=== PATIENT | female | born 1950 | race Caucasian/White ===

== ENCOUNTER 2016-10-19 14:12 | Emergency (ER) | payer OTHER ==
[~2016-10-19] VITALS: Ht 162.6 cm; Wt 102.1 kg
--- NOTE | ~2016-10-19 | EKG ---
[place] [address] [facility] [place] [address] ELECTROCARDIOGRAM REPORT Name: HELIO CHRISTINE 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 : 1950 Requested By: Mansi Martini Order Number: [id number] MD: Lewis Medina Measurements Intervals [place] Rate: 84 P: 29 CT: 164 QRS: -1 QRSD: 103 T: 59 QT: 405 QTc: 479 Interpretive Statements Sinus rhythm Probable left atrial enlargement Abnormal R-wave progression, early transition Nonspecific T abnormalities, anterior leads Baseline wander in lead(s) V6 No previous ECG available for comparison Electronically Signed On 10-20-2016 8:08:02 LABORATORY TECHNICIAN by Lewis Medina [email or web address] <ELECTRONICALLY SIGNED> By: Lewis Medina MD [id number] 16 16 Lewis Mdeina MD /ALINA
[~2016-10-19 14:12] MED LIST: ASPIRIN81 M2 PO; AVAPRO300 MG PO; BAYER CHEWABLE81 MG PO; CHLORTHALIDONE25 MG PO; CLARITIN10 MG PO; CO Q-10100 MG PO; COUMADIN 5 MG TA5 M1 PO; CRESTOR10 MG; DOCUSATE CALCI240 MG; EFFIENT10 MG PO; ELIDEL CREAM 1%30 G1; HYDROCHLOROTH12.5 MG; JANUMET 50-5001 EACH PO; KLOR-CON20 ME1 PO; LASIX 20 MG TAB20 MG PO; LASIX 40 MG TAB40 M1 PO; LASIX 40 MG TAB40 M2 PO; LIPITOR40 MG PO; METFORMIN HCL500 MG PO; MILK OF MA400 MG/5 M PO; NORCO 5-325 TA1 EACH PO; PEPCID40 MG PO; PERCOCET PO; POTASSIUM20 PO; PREDNISONE 20 M20 MG PO; PROAIR HFA8.5 GM INH; PROTOPIC30 GM; ROBAXIN500 MG PO; SENNA; SENNA LAXATIVE1 EACH PO; SINGULAIR 10 MG10 M1 PO; SPIRIVA INH; SYMBICORT160 MCG/4. INH; TOPROL XL25 MG; TOPROL XL25 MG PO; TYLENOL325 MG; TYLENOL325 MG PO; VIIBRYD40 MG; VITAMIN D2000 UNIT PO; VITAMIN D34000 UNIT; WELLBUTRIN XL150 M1; XANAX 0.5 MG0.5 M1; XANAX 0.5 MG0.5 MG PO; ZEBETA10 MG PO; ZETIA10 MG PO
[2016-10-19 14:48] LABS: ABSOLUTE NEUTROPHILS 4.1 thou/uL (1.4-8.2); EOSINOPHILS 1.9 % (0.0-3.0); HEMATOCRIT 39.9 % (37.0-47.0); HEMOGLOBIN 13.2 gm/dL (12.0-15.0); LYMPHOCYTES 24.1 % (24.0-44.0); MANUAL DIFF NO; MCH 29.5 pg (26.0-34.0); MCHC 33.1 % (28.0-37.0); MCV 89.2 fL (80.0-100.0); MONOCYTES 6.6 % (1.0-8.0); PLATELET COUNT 251 thou/uL (150-400); POLYS 66.4 % (36.0-66.0); RBC 4.47 mil/uL (4.20-5.00); RDW 16.4 % (10.5-14.5); WBC 6.2 thou/uL (4.0-11.0)
[2016-10-19] MEDS ORDERED: SINGULAIR 10 MG10 M1 PO (14:57)
[2016-10-19] MEDS ORDERED: CLOBETASOL PROP60 G3 TP (14:58)
[2016-10-19 15:03] LABS: ANION GAP 12 mmol/L (7-16); BUN 12 mg/dL (7-18); CALCIUM 8.5 mg/dL (8.5-10.1); CHLORIDE 101 mmol/L (98-107); CO2 30 mmol/L (21-32); CREATININE 1.1 mg/dL (0.6-1.3); GLUCOSE 258 mg/dL (70-99); POTASSIUM 3.7 mmol/L (3.5-5.1); SODIUM 143 mmol/L (136-145)
[2016-10-19 15:21] LABS: ALBUMIN 3.7 g/dL (3.4-5.0); ALKALINE PHOSPHATASE 90 U/L (46-116); NT-PRO BRAIN NAT PEPTIDE 738 pg/mL (<300); SGOT 20 U/L (15-37); SGPT 23 U/L (30-65); TOTAL BILIRUBIN 0.5 mg/dL (<0.1-1.0); TOTAL PROTEIN 7.6 g/dL (6.4-8.2); TROPONIN-I < 0.04 ng/mL (<0.04-0.07)
== END 2016-10-19 16:56 | disposition home or self-care (01) ==
LOC: ER 14:12
PROVIDERS: Emergency Medicine
DX: R07.89 Other chest pain (principal); I10 Essential (primary) hypertension; I25.10 Atherosclerotic heart disease of native coronary artery without angina pectoris; E11.9 Type 2 diabetes mellitus without complications; F10.99 Alcohol use, unspecified with unspecified alcohol-induced disorder; Z90.710 Acquired absence of both cervix and uterus; Z88.1 Allergy status to other antibiotic agents; Z88.0 Allergy status to penicillin; Z88.2 Allergy status to sulfonamides; Z88.8 Allergy status to other drugs, medicaments and biological substances

== ENCOUNTER 2018-09-29 19:55 | Inpatient (IN) | payer OTHER ==
[~2018-09-29] VITALS: Ht 162.6 cm; Wt 92.1 kg
--- NOTE | ~2018-09-29 | EKG ---
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 : 1950 Requested By: Paty Lawton Order Number: [id number] MD: Jordan Castano Measurements Intervals [place] Rate: 88 P: 43 MA: 167 QRS: -12 QRSD: 100 T: 57 QT: 416 QTc: 504 Interpretive Statements Sinus rhythm Inferior infarct, old Right ventricular conduction delay Prolonged QT interval Baseline wander in lead(s) V5 Compared to ECG 10/19/2016 14:17:43 No significant change was found Electronically Signed On 09-30-2018 8:36:13 ENERGY ADVISOR by Jordan Castano [email or web address] <ELECTRONICALLY SIGNED> By: Jordan Castano MD, [facility] 09/30/18 0836 06 06 Jordan Castano MD, [facility] /EPI
--- NOTE | ~2018-09-29 | HC ---
[facility] [place] [address] CONSULTATION Name: HELIO CHRISTINE Room #: 201-P [facility] IN M.R.#: [id number] Admission: 09/29/18 Attend Phys: Cj Benites Discharge: 10/01/18 Date of : 50 Report #: [id number] THIS REPORT FOR: //name// CC: Cj Woodard CHIEF COMPLAINT: Chest pain. HISTORY OF PRESENT ILLNESS: The patient is a 68-year-old female well known to myself, I had just seen her in the office earlier this week and she was having some sharp chest pain. She had a prolonged episode of central, nonradiating chest discomfort over her central precordium yesterday while at rest. It lasted 5-15 minutes long. She took 1 nitroglycerin, really did not have relief and she came in the Emergency Room and it had mostly resolved. She had a normal sinus rhythm on ECG and no diagnostic ST-T wave abnormalities. Overnight, she has had some sharp twinges of pain that only lasted a few seconds, but the prolonged pain has resolved. She has no nausea or having abdominal bloating. She denies diaphoresis or shortness of breath. She has not had any edema. She has done quite well following her second, aortic valve replacement. PAST MEDICAL HISTORY: She has a history of prior aortic valve surgery x 2. Her initial valve failed shortly after implantation within 2-3 years and had to have a redo aortic valve replacement at [facility] with Dr. Carcamo. At that time, she did require cardiovascular bypasses. She was evaluated in 2016 with a heart catheterization and placement of 2 drug-eluting stents in her circumflex and PTCA only of an ostial OM1. The vein graft to the ramus and OM2 was noted to be patent. Her left anterior descending coronary artery had only [id number]-gc-hxfaxbnb disease. Her right coronary artery had only mild disease. She has normal LV function. She has underlying hypertension and hyperlipidemia. She is also a type 2 diabetic. HOME MEDICATIONS: Include metformin 750 mg p.o. b.i.d., Lasix 40 mg p.o. b.i.d., montelukast, potassium chloride 20 mEq p.o. b.i.d., Lopressor 50 mg p.o. b.i.d., colchicine 0.6 mg b.i.d., Januvia 100 mg daily, glimepiride 2 mg p.o. b.i.d., Plavix 75 mg daily, aspirin 81 mg daily. PAST SURGICAL HISTORY: Prior aortic valve replacement in 2013 and 2015. REVIEW OF SYSTEMS: GASTROINTESTINAL: No nausea, vomiting, hematemesis or melena. GENITOURINARY: No dysuria or hematuria. [address] [address] CONSULTATION Name: HELIO CHRISTINE Room #: 201-P [facility] IN M.R.#: [id number] Admission: 09/29/18 Attend Phys: Cj Benites Discharge: 10/01/18 Date of : 50 Report #: [id number] CARDIOVASCULAR: Positive chest pain. PULMONARY: No shortness of breath, no productive cough. HEENT: No sinus drainage. GASTROINTESTINAL: No hematemesis or melena. GENITOURINARY: No dysuria or hematuria. No frequent urination. PHYSICAL EXAMINATION: VITAL SIGNS: This morning, blood pressure is 121/65, pulse 72, O2 sats 95% on room air. GENERAL: This is a pleasant middle-aged woman. She is alert, oriented, no apparent distress. NECK: Supple. No jugular venous distention. CARDIOVASCULAR: Regular. There is a faint systolic murmur. There is no S3. LUNGS: Clear to auscultation. ABDOMEN: Nontender, nondistended. EXTREMITIES: No peripheral edema. LABORATORY DATA: Electrocardiogram shows a sinus rhythm, subtle T-wave inversion in lead V1 and V2, but no ST segment depression or elevation. Chest x-ray shows no acute abnormality. Troponin I is 0.06 x 2 sets. Her BNP is 371. Hemoglobin is 13.9, INR is 1.0. IMPRESSION AND PLAN: 1. Chest pain. Her symptoms are concerning for angina. I have arranged for an evaluation with a pharmacologic nuclear stress test. She was originally scheduled for one next week. If this is normal, this could be related to an esophageal etiology based on the location. 2. Coronary artery disease. As noted above, she has a history of prior PCI to her circumflex and marginals, and a bypass to a separate marginal. 3. Status post aortic valve replacement. She has a tissue prosthesis, it was a redo procedure and she has done quite well and it was most recently evaluated as an outpatient within the last 12 months or so with satisfactory performance. She does not appear to be in heart failure. 4. Hypertension, stable. 5. Hyperlipidemia. Continue with medical therapy. 6. Diabetes mellitus. Continue with metformin. <ELECTRONICALLY SIGNED> By: Sami Roberts MD, FACC 10/03/18 1446 0907 1009 Shahid Escalera MD, FACC /nt
--- NOTE | ~2018-09-29 | EKG ---
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
[~2018-09-29 19:55] MED LIST changes: +CLOBETASOL PROP60 G3 TP; +ULTRAM 50MG TAB50 MG PO; +VIBRYD PO
[2018-09-29 19:57] VITALS: BP 143/68
[2018-09-29 21:27] LABS: ABSOLUTE NEUTROPHILS 2.6 thou/uL (1.4-8.2); BASOPHILS 1.1 % (0.0-2.0); EOSINOPHILS 4.5 % (0.0-3.0); HEMATOCRIT 40.3 % (37.0-47.0); HEMOGLOBIN 13.9 gm/dL (12.0-15.0); LYMPHOCYTES 36.6 % (24.0-44.0); MCH 30.2 pg (26.0-34.0); MCHC 34.4 g/dL (28.0-37.0); MCV 87.7 fL (80.0-100.0); MONOCYTES 7.6 % (1.0-8.0); PLATELET COUNT 222 thou/uL (150-400); POLYS 50.2 % (36.0-66.0); RDW 14.9 % (10.5-14.5); WBC 5.2 thou/uL (4.0-11.0)
[2018-09-29 21:35] LABS: ANION GAP 6 mmol/L (7-16); BUN 23 mg/dL (7-18); CALCIUM 9.7 mg/dL (8.5-10.1); CHLORIDE 103 mmol/L (98-107); CO2 32 mmol/L (21-32); GLUCOSE 130 mg/dL (74-106); POTASSIUM 3.7 mmol/L (3.5-5.1); SODIUM 141 mmol/L (136-145)
[2018-09-29 21:44] LABS: ALBUMIN 4.2 g/dL (3.4-5.0); SGOT 36 U/L (15-37); SGPT 43 U/L (30-65); TOTAL BILIRUBIN 0.6 mg/dL (<0.1-1.0); TROPONIN-I <0.06 ng/mL (<0.06)
[2018-09-29 22:30] LABS: PROTIME 9.6 Seconds (9.3-11.4)
[2018-09-29 23:32] VITALS: BP 115/57
[2018-09-30] VITALS (38 sets, daily range): BP systolic 105–147; BP diastolic 52–74
[2018-09-30] MEDS ORDERED: LOPRESSOR50 MG PO (00:47)
[2018-09-30] MEDS ORDERED: JANUVIA100 MG PO (00:50)
[2018-09-30] MEDS ORDERED: COLCHICINE0.6 MG PO (00:50)
[2018-09-30] MEDS ORDERED: ULORIC40 MG PO (00:51)
[2018-09-30] MEDS ORDERED: AMARYL2 M1 PO (00:51)
[2018-09-30] MEDS ORDERED: PLAVIX 75 MG TA75 M1 PO (00:52)
[2018-09-30] MEDS ORDERED: CYCLOBENZAPRINE5 MG PO (00:53)
[2018-09-30] MEDS ORDERED: GABAPENTIN 100100 MG PO (00:55)
[2018-09-30 08:27] LABS: CHOLESTEROL 140 mg/dL (<200); HDL CHOLESTEROL 27 mg/dL (>40); LDL CHOLESTEROL 52 mg/dL (<100); TC:HDL 5.2 Ratio (Not establshd); TRIGLYCERIDE 305 mg/dL (<150); TROPONIN-I <0.06 ng/mL (<0.06); VLDL 61 mg/dL (<40)
[2018-10-01 00:49] VITALS: BP 141/69
[2018-10-01 04:41] VITALS: BP 138/67
[2018-10-01 07:10] VITALS: BP 155/79
[2018-10-01 11:05] VITALS: BP 145/81
[2018-10-01 15:40] VITALS: BP 148/78
[2018-10-01 16:43] VITALS: BP 148/78
== END 2018-10-01 17:18 | disposition home or self-care (01) | DRG 311 ==
LOC: ER 19:55 → EROBS 22:10 → ICU 22:10 → 2N 09-30 17:06 → ENTRNSPT 10-01 16:58 → 2N 10-01 17:18
PROVIDERS: Hospitalist; Student in an Organized Health Care Education/Training Program
DX: I24.9 Acute ischemic heart disease, unspecified (principal); I25.110 Atherosclerotic heart disease of native coronary artery with unstable angina pectoris; I10 Essential (primary) hypertension; E78.5 Hyperlipidemia, unspecified; E11.40 Type 2 diabetes mellitus with diabetic neuropathy, unspecified; M10.9 Gout, unspecified; F41.9 Anxiety disorder, unspecified; K21.9 Gastro-esophageal reflux disease without esophagitis; Z60.2 Problems related to living alone; E11.9 Type 2 diabetes mellitus without complications; I48.91 Unspecified atrial fibrillation; Z95.2 Presence of prosthetic heart valve; Z95.1 Presence of aortocoronary bypass graft; Z88.1 Allergy status to other antibiotic agents; Z88.0 Allergy status to penicillin; Z88.2 Allergy status to sulfonamides; Z88.8 Allergy status to other drugs, medicaments and biological substances; Z95.5 Presence of coronary angioplasty implant and graft; Z90.710 Acquired absence of both cervix and uterus; Z79.82 Long term (current) use of aspirin; Z79.899 Other long term (current) drug therapy
CPT/HCPCS: 10078; 10081

== ENCOUNTER → 2018-10-19 | Outpatient (CLI) | payer OTHER ==
[~2018-10-19] MED LIST changes: +AMARYL2 M1 PO; +COLCHICINE0.6 MG PO; +CYCLOBENZAPRINE5 MG PO; +GABAPENTIN 100100 MG PO; +JANUVIA100 MG PO; +LOPRESSOR50 MG PO; +PLAVIX 75 MG TA75 M1 PO; +ULORIC40 MG PO
== END ==
LOC: RAD 09:39
DX: K44.9 Diaphragmatic hernia without obstruction or gangrene (principal)

== ENCOUNTER 2019-06-09 17:04 | Inpatient (IN) | payer OTHER ==
[~2019-06-09] VITALS: Ht 162.6 cm; Wt 94.8 kg
--- NOTE | ~2019-06-09 | HC ---
[facility] [place] [address] CONSULTATION Name: HELIO CHRISTINE Room #: 456-P [facility] IN .R.#: [id number] Admission: 06/09/19 Attend Phys: Aamir Raymond MD Discharge: Date of : 50 Report #: [id number] THIS REPORT FOR: //name// [facility] DATE OF SERVICE: 06/10/2019 REASON FOR CONSULTATION: Right elbow possible infection HISTORY OF PRESENT ILLNESS: The patient is a 69-year-old right-hand dominant female who reported noticing swelling on the posterior aspect of her elbow on Thursday. It then progressed to some pain with erythema that extended down to the volar and ulnar side of her arm. She was seen by her primary care doctor's office on Thursday. Levaquin was started and she was then sent here yesterday. She reports that the pain in this was not as severe as her pain she has experienced with gout in her toe. She noted some labile blood sugars. Upon evaluation in the ER, she reported the edema and redness. The edema has somewhat decreased as well. She was admitted for evaluation of her elbow and IV antibiotics. REVIEW OF SYSTEMS: MUSCULOSKELETAL: See HPI. NEUROLOGIC: Denies numbness or tingling. PAST MEDICAL HISTORY: Significant for coronary artery disease, hypertension, diabetes, gouty and diabetic neuropathy. PAST SURGICAL HISTORY: CABG x 2 with cardiac stent, aortic valve replacement. SOCIAL HISTORY: She is right hand dominant. Denies smoking. Denies use of any ambulatory aids. ALLERGIES: See medical record, AMOXICILLIN, CLAVULANIC ACID, PENICILLIN, ZOLPIDEM, ATORVASTATIN, DULOXETINE, METOCLOPRAMIDE, SERTRALINE, SULFA, SULFAMETHOXAZOLE, TRIMETHOPRIM and VENLAFAXINE. HOME MEDICATIONS: Listed, include metformin, furosemide, montelukast, clobetasol, potassium chloride, metoprolol, colchicine, sitagliptin, glimepiride, febuxostat, clopidogrel, cyclobenzaprine, gabapentin and aspirin. LABORATORY STUDIES: Done on 06/10/2019 show white blood cell count 4.8, hemoglobin 10.9, hematocrit 31.6, platelet count 188. Sedimentation rate is 53, it was 75 on June 09. Chemistry shows low potassium at 3.2, low calcium at 7.8, CRP elevated at 30. The serum uric acid level that I am not locating that was elevated on this visit, done on June 09, uric acid level was 8.3, which was elevated. [address] [address] CONSULTATION Name: HELIO CHRISTINE Room #: 456-P [facility] IN [facility]#: [id number] Admission: 06/09/19 Attend Phys: Aamir Raymond MD Discharge: Date of : 50 Report #: [id number] PHYSICAL EXAMINATION: GENERAL: She is alert and oriented, interacts appropriately. She is well-developed, well-nourished female, in no acute distress. VITAL SIGNS: Most recent vital signs show temperature of 36.9, heart rate 81, respiratory rate 18, blood pressure 139/68, pulse oximetry is 98% on room air. EXTREMITIES: Examination of her right upper extremity, she is grossly neurovascularly intact with gross sensory and motor intact. She has no danyelle erythema. She has edema at the olecranon bursa without a definite fluid collection. There is mild tenderness at the olecranon bursa as well as the lateral epicondyle. There is no pain with elbow motion. She has full elbow, wrist, forearm and hand motion. She will make full fist, full extension. SKIN: Clean, dry and intact. RADIOGRAPHS: Three views of the right elbow show swelling at the posterior olecranon, some mild diffuse arthritic changes within the elbow. No bony destruction is noted. IMPRESSION AND PLAN: Right olecranon bursitis. At this point, it appears to be resolving. I am not appreciating any fluid collection that I could aspirate at this point and her symptoms are significantly improving. She may have also had a cellulitis that is improving. There is no evidence of a septic elbow at this point. I discussed the diagnosis as well as treatment options with her. I would recommend antibiotics and observation. If she and the rest of the medical team do desire for her to be discharged today, I think that would be reasonable as long as she is on antibiotics and the understanding that if her symptoms worsen, she should return to the Emergency Department. Conversely, she could also stay overnight to see if her tenderness continues to resolve and have my partner, Dr. Sami Rose reevaluate her in the morning. Questions were encouraged and answered to the best of my ability. Thank you very much for allowing me to participate in the care of this patient. By: 1234 1318 Dayanara Kimball MD /nt
[2019-06-09 17:05] VITALS: BP 139/64
[2019-06-09 18:13] LABS: ABSOLUTE NEUTROPHILS 4.4 thou/uL (1.4-8.2); BASOPHILS 1.8 % (0.0-2.0); EOSINOPHILS 4.1 % (0.0-3.0); HEMATOCRIT 38.8 % (37.0-47.0); LYMPHOCYTES 19.6 % (24.0-44.0); MCH 30.1 pg (26.0-34.0); MCHC 33.5 g/dL (28.0-37.0); MCV 89.8 fL (80.0-100.0); MONOCYTES 5.7 % (1.0-8.0); PLATELET COUNT 230 thou/uL (150-400); POLYS 68.8 % (36.0-66.0); RBC 4.32 mil/uL (4.20-5.00); RDW 16.4 % (10.5-14.5); WBC 6.4 thou/uL (4.0-11.0)
[2019-06-09 18:22] LABS: CALCIUM 8.8 mg/dL (8.5-10.1); CREATININE 1.1 mg/dL (0.6-1.0); POTASSIUM 3.5 mmol/L (3.5-5.1)
[2019-06-09 18:28] LABS: ALBUMIN 3.5 g/dL (3.4-5.0); TOTAL BILIRUBIN 0.6 mg/dL (<0.1-1.0); TOTAL PROTEIN 7.8 g/dL (6.4-8.2)
[2019-06-09 21:06] VITALS: BP 131/56
[2019-06-09 21:11] VITALS: BP 131/56
--- NOTE | 2019-06-10 04:13 | NUR ---
PT ARRIVED ON THE FLOOR AROUND 2230HRS. PT IS AOX4 AND UP AD EDWIN. PT WAS ORIENTED TO THE ROOM AND THE UNIT. PT WAS ABLE TO SIGN HER OWN CONSENTS AND UNERSTANDS TEACHING. MED REC COMPLETED. HOME MEDS RESTARTED PER OFFICE WORKER. VITAL SIGN STABLE. THE NIGHT PROGRESSED, PT WAS ABLE TO GET COMFORTABLE AND SLEEP PART OF THE SHIFT. PT IS COMPLENT WITH TREATMENT PLAN. NO OTHER S/S OF ACUTE DISTRESS. WILL CONTINUE TO MONITOR.
[2019-06-10 05:56] VITALS: BP 141/69
[2019-06-10 06:00] LABS: BASOPHILS 0.5 % (0.0-2.0); CALCIUM 7.8 mg/dL (8.5-10.1); CREATININE 0.9 mg/dL (0.6-1.0); EOSINOPHILS 4.5 % (0.0-3.0); HEMATOCRIT 31.6 % (37.0-47.0); LYMPHOCYTES 24.9 % (24.0-44.0); MCH 30.9 pg (26.0-34.0); MCHC 34.3 g/dL (28.0-37.0); MCV 90.1 fL (80.0-100.0); MONOCYTES 7.3 % (1.0-8.0); PLATELET COUNT 188 thou/uL (150-400); POLYS 62.8 % (36.0-66.0); POTASSIUM 3.2 mmol/L (3.5-5.1); RBC 3.51 mil/uL (4.20-5.00); RDW 16.3 % (10.5-14.5); WBC 4.8 thou/uL (4.0-11.0)
[2019-06-10 06:10] LABS: HEMOGLOBIN 10.9 gm/dL (12.0-15.0)
[2019-06-10 07:50] VITALS: BP 139/68
[2019-06-10] MEDS ORDERED: GABAPENTIN 100100 MG PO (10:38)
[2019-06-10] MEDS ORDERED: SKIN TREATMENT225 GM TOP (11:28)
[2019-06-10] MEDS ORDERED: CLOTRIMAZOLE 1%15 G1 TOP (11:29)
[2019-06-10 15:00] VITALS: BP 114/66
[2019-06-10 19:16] VITALS: BP 134/58
--- NOTE | 2019-06-10 19:52 | NUR ---
ASSUMED PATENT CARE AT 0715. PATIENT AWAKE AND RESTING QUIETLY IN BED. STATED DID NOT GET MUCH SLEEP LAST NIGHT DUE TO NEUROPATHY PAIN IN HER FEET AND DID NOT GET HER USUAL DOSE OF GABAPENTIN. NOW RECEIVING CORRECT DOSE AND IS FEELING MUCH BETTER. DENIED PAIN TO RIGHT ELBOW UNLESS SHE KNOCKS IT ON SOMETHING. ICE PACK APPLIED. UP INDEPENDENTLY AND TOLERATING WELL. ALL DR.'S CONSULTED ROUNDED. RECEIVED A DOSE OF DAPTOMYCIN WITH NO ADVERSE REACTION NOTED. PLAN IS WHEN DISCHARGES TO CONTINUE ON IV ANTIBIOTIC THROUGH NEXT THURSDAY AND WILL SEE DR. GARCIA IN OUTPATIENT CLINIC. VERY PLEASANT AND COOPERATIVE.
[2019-06-11 00:09] LABS: GLYCOHEMOGLOBIN (HGB A1C) 9.5 % (4.8-5.6)
--- NOTE | 2019-06-11 04:54 | NUR ---
Pt. rested quietly at intervals during the night when checked on during frequent rounds. She c/o pain in her bilateral feet. Tylenol given and scheduled gabapentim given (see emar) with some relief noted. She has been up ad chikis in her room.
[2019-06-11 08:00] VITALS: BP 120/68
--- NOTE | 2019-06-11 10:25 | HC ---
[facility] [place] [address] CONSULTATION Name: HELIO CHRISTINE Room #: 456-P [facility] IN .R.#: [id number] Admission: 06/09/19 Attend Phys: Aamir Raymond MD Discharge: Date of : 50 Report #: [id number] THIS REPORT FOR: //name// CC: Aamir Woodard MD DATE OF SERVICE: 06/10/2019 ENDOCRINE CONSULTATION NOTE CONSULTING PHYSICIAN: Dr. Maxwell Guzmán. REASON FOR CONSULTATION: Uncontrolled type 2 diabetes mellitus. HISTORY OF PRESENT ILLNESS: This is a 69-year-old female patient whose medical background is significant for multiple issues including type 2 diabetes mellitus, CAD, hypertension and neuropathy. The patient was admitted yesterday following a week long issue with right elbow swelling, redness and discomfort. This was first treated by her primary care physician, but the patient continued to experience the same symptoms and it was eventually decided to have her present to the ED where she was admitted for further evaluation and management. On the sides of diabetes mellitus, the patient notes that she has had diabetes for multiple years and notes that her current regimen consists of metformin 750 mg b.i.d., glimepiride 2 mg daily and Januvia 100 mg daily. She notes that she has been under very good control up until a few months ago when she noted that her blood glucose values were rising steadily to where many were above the level of 200 mg/dL. She recalls that her hemoglobin A1c over a month ago was in the 9 range. She is unable to determine why this changing course has occurred, but explains that her diet regimen has not changed significantly during that period. The patient's course of diabetes mellitus has been complicated by severe peripheral neuropathy that is only partially responsive to gabapentin of which she takes 200 mg in the morning and 800 mg in the evenings. She seems to be very bothered by what could be occasionally severe pain in her feet, the patient is not aware of issues pertaining to diabetic retinopathy and is not aware of any element of chronic kidney disease. Significantly, the patient has coronary artery disease and is status post CABG and stent placement. REVIEW OF SYSTEMS: CONSTITUTIONAL: Fatigue, tiredness, but no fever or chills. PULMONARY: Occasional shortness of breath and cough, but no hemoptysis. CARDIAC: Negative for chest pain, but noted for lower extremity edema. No palpitations. GASTROINTESTINAL: Negative for abdominal pain, nausea, vomiting or changes in [facility] [address] [place] [address] CONSULTATION Name: HELIO CHRISTINE Room #: 456-P [facility] IN [facility].#: [id number] Admission: 06/09/19 Attend Phys: Aamir Raymond MD Discharge: Date of : 50 Report #: [id number] bowel frequency. NEUROLOGY: Noted for chronic severe issues with peripheral diabetic neuropathy affecting both her feet in the form of pain and burning. SKIN: Negative for rash or ulceration, but noted for the redness and swelling over her right elbow. HEENT: Negative for sinus congestion, nasal drainage or earache. PSYCHIATRIC: Negative for hallucinations, delusions. HEMATOLOGY: Negative for bruising or ecchymosis. Otherwise, review of systems noncontributory other than what is mentioned in HPI. PAST MEDICAL HISTORY: 1. Type 2 diabetes mellitus. 2. Obesity. 3. Hypertension. 4. Peripheral diabetic neuropathy. 5. [place] cyst of the knee. 6. Hyperlipidemia. 7. Gout. 8. Coronary artery disease, status post CABG in 01/2014 and stent placement in 2015. 9. Aortic valve replacement. 10. Anxiety. PAST SURGICAL HISTORY: 1. CABG. 2. Hysterectomy. OUTPATIENT MEDICATIONS: Metformin 750 mg b.i.d., Januvia 100 mg daily, glimepiride 2 mg daily, furosemide 40 mg b.i.d., Singulair 10 mg daily, metoprolol 50 mg b.i.d., colchicine 0.6 mg b.i.d., febuxostat 40 mg daily, Plavix 75 mg daily, Flexeril 5 mg p.r.n., gabapentin 200 mg in a.m., 800 mg in p.m., aspirin 81 mg daily. ALLERGIES: AMOXICILLIN, CLAVULANIC ACID, PENICILLIN, AMBIEN, ATORVASTATIN, DULOXETINE, METOCLOPRAMIDE, ZOLOFT, SULFA, VENLAFAXINE. SOCIAL HISTORY: The patient has 2 grown children. She lives by herself. She denies use of tobacco, alcohol or illicit drugs. PHYSICAL EXAMINATION: GENERAL: This is a pleasant middle-aged female patient who is not in apparent pain or distress. VITAL SIGNS: Blood pressure is 139/68 mmHg, heart rate is 81 beats per minute, respirations 18 per minute, temperature is 36.9 degrees. HEENT: Anicteric sclerae. Intact extraocular motions. NECK: Supple, without JVD, carotid bruits or lymphadenopathy. I do not [facility] [address] [place] [address] CONSULTATION Name: HELIO CHRISTINE Room #: 456-P ADM IN M.R.#: [id number] Admission: 06/09/19 Attend Phys: Aamir Raymond MD Discharge: Date of : 50 Report #: [id number] appreciate thyromegaly. CHEST: Noted for moderate air entry bilaterally with scattered rales, but no wheezes or rhonchi. HEART: Regular rate and rhythm without murmurs or gallops. ABDOMEN: Soft and lax without tenderness or organomegaly. She has active bowel sounds. LOWER EXTREMITIES: Noted for trace ankle edema bilaterally with palpable pedal pulses and severely diminished sensation to light touch. MUSCULOSKELETAL: Right elbow redness and swelling. NEUROLOGIC: Awake, alert and oriented to time, place and person. The remainder of her examination is nonfocal other than for peripheral sensory deficit. PSYCHIATRIC: Normal mood and affect, interactive. LABORATORY RESULTS: Her blood glucose this morning was 208 mg/dL, white blood count 4.8, hemoglobin 10.9, hematocrit 31.6, platelets 188. ESR 53. Sodium 140, potassium 3.2, chloride 103, carbon dioxide 27, anion gap 10, BUN 14, creatinine 0.9, GFR 62. Glucose 266. Lactic acid 4.0. GFR was as low as 49 yesterday. Uric acid 8.3, calcium 8.8, total bilirubin 0.6, AST 66, ALT 47, calcium 7.8. Total cholesterol 140, triglycerides 305, HDL 27, LDL 52. Hemoglobin A1c in January 2014 was 6.1. TSH on 09/30/2018 was 5.218. ASSESSMENT AND PLAN: 1. Type 2 diabetes mellitus. As noted above, the patient notes that she has had what has been historically well controlled diabetes mellitus until the past few months when she has noticed a distinct increase in her blood glucose values. I will update her hemoglobin A1c in an attempt to better understand her current level of control. Moreover, the patient's kidney function has fluctuated between stage 2 and stage 3A during her 24 hours of hospital stay, which pushes in the direction of renally adjusted doses of her medicines, namely dropping her Glucophage to 750 mg once a day and Januvia to 50 mg once a day. Collectively, I am doubtful that the current regimen, especially after the renal dose adjustments would be sufficient to control her blood glucose values. That said, I will initiate therapy with long-acting insulin at a dose of Lantus insulin 12 units daily to be started now in addition to coverage with Humalog supplemental scale low intensity, Glucophage will be held for the duration of her hospital stay and I will switch her to Tradjenta 5 mg daily, which would be advantageous from the renal function standpoint. Moreover, with Lantus being started, the patient might be able to forego sulfonylurea therapy, especially with her stated sulfa allergy. I believe that the patient will need to maintain therapy with long-acting insulin after discharge and long-term as an outpatient. Blood glucose monitoring will commence a.c. and at bedtime to help further adjust her regimen as needed. 2. Hypothyroidism. The patient had a TSH value that is indicative of subclinical hypothyroidism back in late 2018. I will update her profile with TSH, free T4 and TPO antibodies and proceed as needed afterwards. 3. Hypertension. The patient's level of blood pressure control is adequate. [address] [address] CONSULTATION Name: HELIO CHRISTINE Room #: 456-P [facility] IN ..#: [id number] Admission: 06/09/19 Attend Phys: Aamir Raymond MD Discharge: Date of : 50 Report #: [id number] She is to continue the current regimen. 4. Chronic kidney disease. As noted above, the patient has had GFR values over the past 24 hours that are indicative of stage 3 chronic kidney disease. This will be monitored and accounted for future therapeutic plans. I certainly appreciate this consultation by Dr. Guzmán. It is certainly a pleasure to participate in the care of Dr. Sharma's patient. <ELECTRONICALLY SIGNED> By: Cayla Machado MD 06/11/19 1025 1424 2353 Cayla Machado MD /nt
[2019-06-11 15:00] VITALS: BP 134/61
--- NOTE | 2019-06-11 16:45 | NUR ---
PT A&OX4, VSS, DENIES PAIN. PATIENT IN RECLINER MOST OF DAY, FAMILY IN TO VISIT. RIGHT ELBOW EDEMA, SKIN PINK. PER PATIENT HER SWELLING IN ELBOW HAS DECREASED. WILL CONTINUE TO MONITOR
[2019-06-11 19:20] VITALS: BP 146/72
--- NOTE | 2019-06-12 04:04 | NUR ---
Pt. rested quietly at intervals during the night when checked on during frequent rounds. She c/o bilateral feet pain and scheduled neurontin given (see emar) with some relief noted. Some swelling to the right elbow area and pt. reports improvement. Up ad chikis in her room.
[2019-06-12 05:16] LABS: HEMATOCRIT 34.2 % (37.0-47.0); HEMOGLOBIN 11.7 gm/dL (12.0-15.0); MCH 30.5 pg (26.0-34.0); MCHC 34.1 g/dL (28.0-37.0); MCV 89.6 fL (80.0-100.0); RBC 3.82 mil/uL (4.20-5.00); RDW 15.9 % (10.5-14.5); WBC 4.3 thou/uL (4.0-11.0)
[2019-06-12 05:32] LABS: CALCIUM 8.2 mg/dL (8.5-10.1); CREATININE 0.9 mg/dL (0.6-1.0); POTASSIUM 3.5 mmol/L (3.5-5.1)
[2019-06-12 10:08] VITALS: BP 114/56
[2019-06-12] MEDS ORDERED: JANUVIA50 MG PO (12:36)
[2019-06-12] MEDS ORDERED: LANTUS100 UNIT/M SUBQ (15:18)
[2019-06-12] MEDS ORDERED: NOVOLOG100 UNIT/1 SUBQ (15:19)
[2019-06-12] MEDS ORDERED: TRADJENTA5 MG PO (15:22)
[2019-06-12] MEDS ORDERED: ZYVOX600 MG PO (15:22)
[2019-06-12 16:42] VITALS: BP 114/56
[2019-06-12 18:09] VITALS: BP 114/56
--- NOTE | 2019-06-12 19:33 | NUR ---
PT DISCHARGED HOME, A&OX4, VSS, DENIES PAIN/CHEST PAIN/SOA. PATIENT VERBALIZED UNDERSTANDING OF DISCHARGE PAPERWORK AND PRESCRIPTIONS. PATIENT STATED THE ONLY [facility] OPEN IS FAR FROM HER HOUSE AND SHE WANTS TO FILL THEM ON THURSDAY, DUE TO Thursday06/13/19 BEING A HOLIDAY. NO SIGNS OF DISTRESS, ALL BELONGINGS WITH PATIENT, IV REMOVED.
--- NOTE | 2019-06-13 12:23 | HC ---
[facility] [place] [address] CONSULTATION Name: HELIO CHRISTINE Room #: 456-P [facility] IN M.R.#: [id number] Admission: 06/09/19 Attend Phys: Aamir Ramyond MD Discharge: 06/12/19 Date of : 50 Report #: [id number] THIS REPORT FOR: //name// CC: Aamir SharmaAimee DATE OF SERVICE: 06/10/2019 INFECTIOUS DISEASE CONSULTATION REASON FOR CONSULTATION: I was asked to evaluate concerning right olecranon bursitis. HISTORY OF PRESENT ILLNESS: The patient is a 69 year old with diabetes, coronary artery disease, coronary bypass grafting and aortic valve replacement and gouty arthritis with peripheral neuropathy. She noticed increased pain and swelling in her right elbow with onset about 5 days ago. No specific trauma. Does not feel similar to her gout, which has involved her feet. Denied any fever, chills or sweats. Pain and swelling persisted with increased erythema that started tracking down her forearm. She, therefore, was hospitalized, placed on vancomycin. Over the last 24 hours, she has shown signs of improvement. There is less swelling, pain and redness. Blood sugar control continues to be an issue with her. She is obese. REVIEW OF SYSTEMS: She has peripheral neuropathy, which is a painful issue to both feet. She is on gabapentin to help control this discomfort. She has had no other cardiopulmonary, GI or complaints. 10-point review was negative other than what is described above. ALLERGIES: PENICILLIN. She does think that she has tolerated cephalosporins in the past. AMBIEN, LIPITOR, CYMBALTA, REGLAN, ZOLOFT, EFFEXOR, SULFA. MEDICATIONS: Include vancomycin. She is also started on colchicine. PAST MEDICAL HISTORY: Hypertension, coronary artery disease, coronary bypass grafting, aortic valve replacement with a bioprosthetic valve, diabetes, hysterectomy, atrial fibrillation, anxiety, diabetic neuropathy and gouty arthritis. SOCIAL HISTORY: Nonsmoker, no significant alcohol intake. FAMILY HISTORY: Noncontributory. PHYSICAL EXAMINATION: VITAL SIGNS: Afebrile and hemodynamically stable. She is sitting in her chair, in no acute distress. She was moderately obese. [facility] [address] [place] [address] CONSULTATION Name: HELIO CHRISTINE Room #: 456-P [facility] IN [facility].#: [id number] Admission: 06/09/19 Attend Phys: Aamir Raymond MD Discharge: 06/12/19 Date of : 50 Report #: [id number] SKIN: With mild erythema involving the olecranon region. There was thickening of the skin over the bursa with persistent tenderness. No axillary adenopathy. Sensation in her upper extremities was normal. Pulses in the wrist were normal. EYES: Without scleral icterus. MOUTH: Without mucositis. NECK: Supple. LUNGS: Clear. HEART: Regular without murmur, gallop or rub. She had crisp valve sounds. ABDOMEN: Soft, nontender, no hepatosplenomegaly or mass appreciated. EXTREMITIES: Lower extremities without clubbing, cyanosis or edema. NEUROLOGIC: Cranial nerves intact. Sensation in the lower extremities distally was diminished. PSYCHIATRIC: Mood was normal. BACK: Nontender. No CVA tenderness. LABORATORY STUDIES: ESR 53. Blood cultures negative. Creatinine 0.9. Hemoglobin 10.9, white count 4.8. Differential unremarkable. X-ray of the elbow, soft tissue swelling consistent with olecranon bursitis, degenerative arthritis. IMPRESSION: 1. 69-year-old diabetic with aortic valve replacement, has right olecranon bursitis. This most likely is secondary to infection considering she has no history of tophi. Still cannot yet rule out gout involvement in the bursa. Feel it is most reasonable to continue antibiotic therapy. 2. Diabetes. 3. Hypertension. 4. Prosthetic aortic valve. 5. Anxiety. 6. Peripheral neuropathy. RECOMMENDATIONS: We will continue IV antibiotic therapy, due to her drug allergies and the possibility for MRSA we will go with daptomycin in the outpatient clinic. I can do this through the weekend and reevaluate the first of next week. If improved, then we will switch to oral therapy. She will need to control blood glucose levels and we discussed this. She will continue with offloading. Control edema. We will make arrangements for outpatient care. <ELECTRONICALLY SIGNED> By: Ras Wright MD 06/13/19 1223 [id number] Ras Wright MD /nt
== END 2019-06-12 19:28 | disposition home or self-care (01) | DRG 558 ==
LOC: ER 17:04 → EROBS 19:50 → 4W 19:50
PROVIDERS: Emergency Medicine; Hospitalist; Internal Medicine; Nurse Practitioner; ADMIT Hospitalist
DX: M70.21 Olecranon bursitis, right elbow (principal); L03.113 Cellulitis of right upper limb; E11.22 Type 2 diabetes mellitus with diabetic chronic kidney disease; N18.3 Chronic kidney disease, stage 3 (moderate); E11.42 Type 2 diabetes mellitus with diabetic polyneuropathy; E78.5 Hyperlipidemia, unspecified; E66.9 Obesity, unspecified; E03.9 Hypothyroidism, unspecified; I12.9 Hypertensive chronic kidney disease with stage 1 through stage 4 chronic kidney disease, or unspecified chronic kidney disease; M10.9 Gout, unspecified; I48.0 Paroxysmal atrial fibrillation; F41.9 Anxiety disorder, unspecified; Z68.35 Body mass index [BMI] 35.0-35.9, adult; Z79.899 Other long term (current) drug therapy; Z88.2 Allergy status to sulfonamides; Z88.1 Allergy status to other antibiotic agents; Z88.8 Allergy status to other drugs, medicaments and biological substances; Z88.0 Allergy status to penicillin; Z95.1 Presence of aortocoronary bypass graft; Z90.710 Acquired absence of both cervix and uterus; Z95.4 Presence of other heart-valve replacement; Z79.84 Long term (current) use of oral hypoglycemic drugs; Z79.82 Long term (current) use of aspirin
CPT/HCPCS: 10040

== ENCOUNTER 2021-08-06 18:10 | Inpatient (IN) | payer OTHER ==
[~2021-08-06] VITALS: Ht 162.6 cm; Wt 97.8 kg
[~2021-08-06 18:10] MED LIST changes: +CLOTRIMAZOLE 1%15 G1 TOP; +JANUVIA50 MG PO; +LANTUS100 UNIT/M SUBQ; +NOVOLOG100 UNIT/1 SUBQ; +SKIN TREATMENT225 GM TOP; +TRADJENTA5 MG PO; +ZYVOX600 MG PO
[2021-08-06 18:11] VITALS: BP 153/72
[2021-08-06 18:36] LABS: ABSOLUTE NEUTROPHILS 6.4 thou/uL (1.4-8.2); BASOPHILS 0.5 % (0.0-2.0); EOSINOPHILS 3.1 % (0.0-3.0); HEMATOCRIT 37.2 % (37.0-47.0); HEMOGLOBIN 12.5 gm/dL (12.0-15.0); LYMPHOCYTES 13.1 % (24.0-44.0); MCH 29.5 pg (26.0-34.0); MCHC 33.5 g/dL (28.0-37.0); MCV 88.1 fL (80.0-100.0); MONOCYTES 5.4 % (1.0-8.0); PLATELET COUNT 263 thou/uL (150-400); POLYS 77.9 % (36.0-66.0); RBC 4.23 mil/uL (4.20-5.00); RDW 16.3 % (10.5-14.5); WBC 8.2 thou/uL (4.0-11.0)
[2021-08-06 18:48] LABS: CALCIUM 9.1 mg/dL (8.5-10.1); POTASSIUM 4.1 mmol/L (3.5-5.1)
[2021-08-06] MEDS ORDERED: BETAMETHASONE D15 G4 TOP (21:21)
[2021-08-06] MEDS ORDERED: PREGABALIN75 MG PO (21:21)
[2021-08-06] MEDS ORDERED: PLAVIX 75 MG TA75 MG PO (21:22)
[2021-08-06] MEDS ORDERED: EZETIMIBE10 MG PO (21:23)
[2021-08-06] MEDS ORDERED: LOPRESSOR50 MG PO (21:23)
[2021-08-06] MEDS ORDERED: FUROSEMIDE 40 M40 M1 PO (21:26)
[2021-08-06] MEDS ORDERED: ASA81BEC PO (21:27)
[2021-08-06] MEDS ORDERED: AMARYL4 MG PO (21:28)
[2021-08-06] MEDS ORDERED: JARDIANCE10 MG PO (21:28)
[2021-08-06] MEDS ORDERED: LANTUS SUBQ (21:29)
[2021-08-06] MEDS ORDERED: NOVOLOG100 UNIT/1 SUBQ (21:30)
[2021-08-06] MEDS ORDERED: METFORMIN HCL500 M3 PO (21:31)
[2021-08-06 23:25] LABS: CHOLESTEROL 158 mg/dL (<200); HDL CHOLESTEROL 30 mg/dL (>40); LDL CHOLESTEROL 80 mg/dL (<100); TC:HDL 5.3 Ratio (Not establshd); TRIGLYCERIDE 244 mg/dL (<150); VLDL 49 mg/dL (<40)
[2021-08-06 23:26] LABS: SERUM ASSESSMENT Slight Lipemia
[2021-08-07 01:26] VITALS: BP 114/63
[2021-08-07 02:30] VITALS: BP 117/53
[2021-08-07 03:03] LABS: HEMATOCRIT 37.4 % (37.0-47.0); HEMOGLOBIN 12.3 gm/dL (12.0-15.0); MCH 29.4 pg (26.0-34.0); MCHC 32.8 g/dL (28.0-37.0); MCV 89.5 fL (80.0-100.0); RBC 4.19 mil/uL (4.20-5.00); RDW 16.3 % (10.5-14.5); WBC 7.2 thou/uL (4.0-11.0)
[2021-08-07 03:57] LABS: CALCIUM 8.8 mg/dL (8.5-10.1); MAGNESIUM 1.7 mg/dL (1.8-2.4); POTASSIUM 4.3 mmol/L (3.5-5.1)
[2021-08-07 04:40] VITALS: BP 111/56
--- NOTE | 2021-08-07 05:21 | NUR ---
PT ARRIVED IN WHEEL CHAIR FROM ER. UP AD EDWIN. CAREPLAN IN PLACE, INTERVENTIONS SET, AND MED REC COMPLETED IN ER. PT IS NPO FOR POSSIBLE PROCEDURE. CONSULT TO CARDIO WILL BE PLACED THIS AM. PT WAS SCHEDULED FOR OUTPATIENT SURGERY TODAY FOR A TRIGGER FINGER.
[2021-08-07 07:12] VITALS: BP 118/67
--- NOTE | 2021-08-07 08:41 | NUR ---
CALLED [facility], SPOKE TO DEYANIRA. HE STATED PT STRESS TEST IS A 2 PART AND PT CAN EAT AND TAKE HER MEDS TODAY. ORDER PLACE BACK IN FOR A DIET FOR THE PT.
--- NOTE | 2021-08-07 11:20 | 2DMMODE ---
[facility] [place] [address] 2 D/M-MODE ECHOCARDIOGRAM Name: HELIO CHRISTINE Room #: 360-P ADM IN ..#: [id number] Admission: 08/06/21 Attend Phys: Maxwell Guzmán MD Discharge: Date of : 50 Report #: [id number] THIS REPORT FOR: cc: Kellie Woodard MD, Paula V. MD Park, Jin S. MD ~ APPROVED REPORT Study performed: 08/07/2021 10:10:08 EXAM: Comprehensive 2D, Doppler, and color-flow Echocardiogram Patient Location: Bedside Room #: 360 Status: routine BSA: 2.00 HR: 66 bpm BP: 118/67 mmHg Rhythm: NSR Other Information Study Quality: Adequate Technically limited study due to obesity. Indications Chest pain. Hx: CABG, PCI, aortic valve replacement X 2. 2D Dimensions IVSd: 11.70 (7-11mm) LVDd: 47.43 mm PWd: 10.98 (7-11mm) LVDs: 33.55 (25-40mm) Left Atrium: 46.09 (27-40mm) Aortic Root: 28.78 mm Volumes Left Atrial Volume (Systole) Single Plane 4CH: 77.63 mL Single Plane 2CH: 56.95 mL LA ESV Index: 36.00 mL/m2 Aortic Valve AoV Peak Khadar.: 3.31 m/s AO Peak Gr.: 43.84 mmHg LVOT Max P.86 mmHg AO Mean Gr.: 27.12 mmHg [facility] [address] [place] [address] 2 D/M-MODE ECHOCARDIOGRAM Name: HELIO CHRISTINE Room #: 360-P [facility] IN .R.#: [id number] Admission: 08/06/21 Attend Phys: Maxwell Guzmán MD Discharge: Date of : 50 Report #: [id number] AO V2 Mean: 2.47 m/s LVOT Max V: 1.31 m/s AO V2 VTI: 80.37 cm Mitral Valve E/A Ratio: 0.9 MV Decel. Time: 277.22 ms MV E Max Khadar.: 1.33 m/s MV A Khadar.: 1.50 m/s MV PHT: 80.39 ms IVRT: 65.74 ms Pulmonary Valve PV Peak Khadar.: 1.26 m/s PV Peak Gr.: 6.36 mmHg Pulmonary Vein P Vein S: 0.68 m/s P Vein A: 0.24 m/s P Vein D: 0.48 m/s P Vein A Dur.: 110.7 msec P Vein S/D Ratio: 1.42 Tricuspid Valve TR Peak Khadar.: 2.67 m/s RAP Estimate: 5.00 mmHg TR Peak Gr.: 28.48 mmHg PA Pressure: 33.00 mmHg Left Ventricle The left ventricle is normal size. There is normal LV segmental wall motion. There is normal left ventricular wall thickness. Left ventricular systolic function is normal. LVEF is 60-65%. Mild diastolic dysfunction is present (impaired relaxation pattern). Right Ventricle The right ventricle is normal size. The right ventricular systolic function is normal. Atria Left atrium is mildly dilated. The right atrium size is normal. Aortic Valve Bioprosthetic aortic valve is present. Peak pressure gradient of 44mmHg. mean 27mmHg. No aortic regurgitation is present. Mitral Valve The mitral valve is normal in structure. There is mitral annular calcification. Moderate mitral regurgitation. No evidence of mitral [facility] [address] [place] [address] 2 D/M-MODE ECHOCARDIOGRAM Name: HELIO CHRISTINE Room #: 360-[facility] IN [facility]#: [id number] Admission: 08/06/21 Attend Phys: Maxwell Guzmán MD Discharge: Date of : 50 Report #: [id number] valve stenosis. Tricuspid Valve The tricuspid valve is normal in structure. Mild tricuspid regurgitation. Estimated PAP is 33mmHg. Pulmonic Valve The pulmonary valve is normal in structure. Mild pulmonic regurgitation. Great Vessels The aortic root is normal in size. The ascending aorta is normal in size. IVC is normal in size and collapses >50% with inspiration. Pericardium There is no pericardial effusion. <Conclusion> The left ventricle is normal size. There is normal left ventricular wall thickness. Left ventricular systolic function is normal. Mild diastolic dysfunction is present (impaired relaxation pattern). The right ventricle is normal size. Left atrium is mildly dilated. Bioprosthetic aortic valve is present. Peak pressure gradient of 44mmHg. mean 27mmHg. Moderate mitral regurgitation. Mild tricuspid regurgitation. Estimated PAP is 33mmHg. <ELECTRONICALLY SIGNED> By: Ariel Helms MD 08/07/21 1119 18 18 Ariel Helms MD /INF
--- NOTE | 2021-08-07 14:24 | NUR ---
INITIAL ASSESSMENT: Received consult. SW reviewed chart and spoke with nursing and attending physician. Pt was admitted from home due to chest pain. Pt to have second part of stress test tomorrow. SW met with pt at bedside. Introduced role of SW. Pt is alert/orientated x 4. Pt reports she lives at home. Prior to admission, pt was independent with ADLs. No use of DME. No hx of services or post-acute placement. Pt's PCP is Dr. Kellie Woodard. Pt's reimbursement rep is Dr. Escalera at [place]. Plan is for pt to discharge home when medically stable. No discharge needs identified at this time. SW is following to assist as needed with discharge planning.
[2021-08-07 15:05] VITALS: BP 107/58
--- NOTE | 2021-08-07 16:13 | NUR ---
CARE ASSUMED THIS AM, PT ALERT AND ORINTED X4. DENIES ANY CHEST PAIN. UP TO BATHROOM INDEPENDENTLY. ON ROOM AIR, NO SIGNS OF DISTRESS. DENIES ANY NEEDS REYNA. WILL CONTINUE TO MONITOR
[2021-08-07 19:33] VITALS: BP 117/57
[2021-08-08 02:06] LABS: GLYCOHEMOGLOBIN (HGB A1C) 6.8 % (4.8-5.6)
[2021-08-08 04:35] VITALS: BP 136/82
--- NOTE | 2021-08-08 05:57 | NUR ---
VSS OVERNIGHT. PT HAS BEEN NPO SINCE 2400 FOR 2ND PART OF STRESS TEST. PT HAS SELF CHECKING BLOOD SUGAR DEVICE ON RIGHT LOWER ABDOMEN. PT HAD NO COMPLAINTS OVERNIGHT.
[2021-08-08 07:20] VITALS: BP 124/65
--- NOTE | 2021-08-08 15:00 | NUR ---
SW reviewed chart and spoke with nursing and attending physician. Pt to have second part of stress test today. Pt may discharge home later today pending results of stress test. No SW discharge needs identified at this time. SW is available to assist should needs arise.
[2021-08-08 15:15] VITALS: BP 141/69
--- NOTE | 2021-08-08 16:39 | NUR ---
CARE ASSUMED THIS, PT WAS NPO FOR STRESS TEST. ALERT AND ORIENTED X4, DENIES ANY CHEST PAIN, NAUSEA AND VOMITTING. UP AD EDWIN TO BATHRROM. WAITING ON AUTOMATIC RIVETING MACHINE OPERATOR TO DECIDE IF THEY ARE OKAY FOR PT TO GET D/C, POST STRESS TEST. PT UNDERSTANDS AND IT PATIENT WAITING. WILL CONTINUE TO MONITOR.
[2021-08-08 17:39] VITALS: BP 141/69
--- NOTE | 2021-08-08 18:39 | NUR ---
DISCHAGE NOTE: ORDERS FOR D/C IN. DISCHARGE INSTRUCTIONS IN FOR PT. PT AWARE OF APPOINTMENT WITH HER SORTER OPERATOR. DENIES ANY QUESTIONS. IV AND TELE D/C. ALL BELONGINGS WITH PT. PT TAKEN DOWN VIA WHEELCHAIR
== END 2021-08-08 18:35 | disposition home or self-care (01) | DRG 302 ==
LOC: ER 18:10 → EROBS 21:30 → 3W 21:30
PROVIDERS: Nurse Practitioner; Nurse Practitioner Family; ADMIT Hospitalist; ATTEND Hospitalist
DX: I25.110 Atherosclerotic heart disease of native coronary artery with unstable angina pectoris (principal); I50.31 Acute diastolic (congestive) heart failure; E11.42 Type 2 diabetes mellitus with diabetic polyneuropathy; F41.9 Anxiety disorder, unspecified; I48.91 Unspecified atrial fibrillation; M10.9 Gout, unspecified; F32.9 Major depressive disorder, single episode, unspecified; I08.1 Rheumatic disorders of both mitral and tricuspid valves; Z20.822 Contact with and (suspected) exposure to COVID-19; I10 Essential (primary) hypertension; Z95.1 Presence of aortocoronary bypass graft; Z95.5 Presence of coronary angioplasty implant and graft; Z95.2 Presence of prosthetic heart valve; Z90.710 Acquired absence of both cervix and uterus; Z86.73 Personal history of transient ischemic attack (TIA), and cerebral infarction without residual deficits; Z88.1 Allergy status to other antibiotic agents; Z88.0 Allergy status to penicillin; Z88.2 Allergy status to sulfonamides; Z88.8 Allergy status to other drugs, medicaments and biological substances; Z79.899 Other long term (current) drug therapy
CPT/HCPCS: 10879